=== PATIENT | male | born 1980 | race African-American/Black ===

== ENCOUNTER 2020-07-27 18:13 | Emergency (ER) | payer OTHER ==
[~2020-07-27] VITALS: Ht 190.5 cm; Wt 99.3 kg
[2020-07-27 18:40] LABS: ABSOLUTE NEUTROPHILS 8.3 thou/uL (1.4-8.2); BASOPHILS 0.7 % (0.0-2.0); CALCIUM 8.8 mg/dL (8.5-10.1); CREATININE 1.1 mg/dL (0.7-1.3); EOSINOPHILS 0.9 % (0.0-3.0); HEMATOCRIT 43.4 % (42.0-52.0); HEMOGLOBIN 14.5 gm/dL (14.0-18.0); LYMPHOCYTES 18.5 % (24.0-44.0); MCH 32.4 pg (26.0-34.0); MCHC 33.4 g/dL (28.0-37.0); MCV 97.2 fL (80.0-100.0); MONOCYTES 8.5 % (1.0-8.0); PLATELET COUNT 183 thou/uL (150-400); POLYS 71.4 % (36.0-66.0); POTASSIUM 3.8 mmol/L (3.5-5.1); RBC 4.47 mil/uL (4.50-6.00); RDW 12.4 % (10.5-14.5); WBC 11.7 thou/uL (4.0-11.0)
[2020-07-27 18:46] LABS: TOTAL BILIRUBIN 0.8 mg/dL (0.2-1.0); TOTAL PROTEIN 7.5 g/dL (6.4-8.2)
[2020-07-27 18:56] LABS: SALICYLATE < 2.8 mg/dL (2.8-20.0)
[2020-07-27 19:12] LABS: AMP/METHAMP Negative (Negative); BARBITURATES Negative (Negative); BENZODIAZEPINES Negative (Negative); COCAINE Negative (Negative); METHADONE Negative (Negative); OPIATES Negative (Negative); PCP Negative (Negative)
[2020-07-27] MEDS ORDERED: MOBIC15 MG PO (20:03)
[2020-07-27] MEDS ORDERED: PREDNISONE 20 M20 MG PO (20:03)
[2020-07-27 20:13] VITALS: BP 164/97
== END 2020-07-27 20:13 | disposition home or self-care (01) ==
LOC: ER 18:13
PROVIDERS: Physician Assistant
DX: S09.90XA Unspecified injury of head, initial encounter (principal); M51.26 Other intervertebral disc displacement, lumbar region; R41.82 Altered mental status, unspecified; Z76.0 Encounter for issue of repeat prescription; W22.8XXA Striking against or struck by other objects, initial encounter; Y93.89 Activity, other specified; Y92.89 Other specified places as the place of occurrence of the external cause; Y99.8 Other external cause status